=== PATIENT | female | born 1930 | race Caucasian/White ===

== ENCOUNTER 2018-06-16 11:05 | Emergency (ER) | payer MEDICARE ==
[2018-06-16 11:17] VITALS: BP 170/55
--- NOTE | 2018-06-16 11:49 | UC ---
Abdominal Pain Female HPI - HPI Summary HPI Summary: Patient presents to urgent care with her daughter. Patient states yesterday she started having urinary frequency couple episodes of incontinence and malodor. Patient states this is happened in the past with UTIs. Patient's last UTI was approximately 2 years ago. Daughter states when she gets them she gets very confused. At this time patient is not confused. No abdominal pain. No nausea vomiting. No back pain. No fever. Patient has not taken any medication to treat this. Patient typically gets her care and [place]. Patient has no allergies antibiotics. Patient's medication list reviewed. - History of Current Complaint Chief Complaint: UCGU Stated Complaint: URINARY COMPLAINT Time Seen by Provider: 06/16/18 11:11 Hx Obtained From: Patient ?: No Onset/Duration: Gradual Onset Severity Currently: None Pain Intensity: 0 Allergies/Adverse Reactions: Allergies Allergy/AdvReac Type Severity Reaction Status Date / Time No Known Allergies Allergy Verified 06/16/18 11:17 Home Medications: Home Medications C,E,Zinc,Copper 11/Jwzty2w/Lut [Ocuvite Adult 50 Plus Softgel] 1 each PO DAILY 06/16/18 [History Confirmed 06/16/18] Calcium Carbonate [Calcium/C/D] 1 chw PO DAILY 06/16/18 [History Confirmed 06/16] Docusate Sodium [Stool Softener] 100 mg PO DAILY 06/16/18 [History Confirmed ] Insulin Glargine,Hum.rec.anlog [Basaglar Kwikpen] 20 unit SC BEDTIME 06/16/18 [ History Confirmed 06/16/18] Lidocaine PATCH 5%* [Lidoderm 5% Patch*] 1 patch TRANSDERM DAILY 06/16/18 [ History Confirmed 06/16/18] Psyllium Husk [Fiber] 1 dose PO DAILY 06/16/18 [History Confirmed 06/16/18] PMH/Surg Hx/FS Hx/Imm Hx Endocrine History: Dyslipidemia Cardiovascular History: Hypertension - Surgical History Surgical History: Yes Surgery Procedure, Year, and Place: cardiac stents x3. hiatal hernia repair 04/12. GALLBLADDER - Family History Known Family History: Positive: Cardiac Disease, Hypertension, Diabetes - Social History Occupation: Retired Lives: Alone Alcohol Use: None Substance Use Type: None Smoking Status (MU): Former Smoker Length of Time of Smoking/Using Tobacco: in high school only Review of Systems All Other Systems Reviewed And Are Negative: Yes Constitutional: Positive: Negative Skin: Positive: Negative Respiratory: Positive: Negative Cardiovascular: Positive: Negative Gastrointestinal: Positive: Negative Genitourinary: Positive: Frequency, Urgency, Other - incontinence. Negative: Vaginal/Penile Burning, Vaginal/Penile Itching, Vaginal/Penile Discharge, Vaginal/Penile Pain, Vaginal/Penile Tenderness Is Patient Immunocompromised?: No Physical Exam - Summary Physical Exam Summary: Vital Signs Reviewed: Yes A+Ox3, no distress Eyes: Conjunctiva Clear, ENT: Hearing grossly normal mmoist, Neck: Positive: Supple Respiratory: Positive: No respiratory distress, No accessory muscle use + CTA throughout no w/r Cardiovascular: RRR nl s1, s2 no m/r CBT <2 sec abd soft + BS nt/nd no guarding, no distension Musculoskeletal Exam: Pt uses wheelchair for assistance - arthritis b/l hips Neurological: Positive: Alert, + sensation throughout Psychological: Positive: Normal Response To Family Skin: Positive: no rash, no ecchymosis Triage Information Reviewed: Yes Vital Signs: Initial Vital Signs Temp 97.7 F 06/16/18 11:12 Pulse 61 06/16/18 11:12 Resp 18 06/16/18 11:12 BP 170/55 06/16/18 11:12 Pulse Ox 100 06/16/18 11:12 Abd Pain Female Course/Dx - Course Course Of Treatment: Patient presents to urgent care with her daughter. Patient with less than 24 hours of urinary symptoms. Patient with a history of recurrent UTIs. Patient without any cultures in our system. Care usually in [place]. Urine today consistent with UTI including leukoesterase and blood. Called patient's pharmacy last antibiotic that they have on file was admitted in 2012. Will start cephalexin hydrate culture return precautions Pt's BP elevated - history of HTN - Differential Dx/Diagnosis Provider Diagnosis: UTI (urinary tract infection) Discharge - Sign-Out/Discharge Documenting (check all that apply): Patient Departure All imaging exams completed and their final reports reviewed: No Studies - Discharge Plan Condition: Stable Disposition: HOME Prescriptions: Cephalexin CAP* [Keflex 500 CAP*] 500 mg PO BID #14 cap Patient Education Materials: Urinary Tract Infection in Women (ED) Referrals: Abigail Patterson MD [Primary Care Provider] - Additional Instructions: - stay well hydrated - drink plenty of non-alcoholic, non caffinated beverages - your urine will be further tested - if you require any changes to your treatment, we will contact you - this usually take 2 days - Contact your primary doctor to arrange a follow-up appointment next week. Contact your doctor or return with questions or concerns - Take your antibiotics exactly as prescribed until gone - Okay to take Tylenol every 6 hours for pain. Take with food - Call your doctor or return with questions or concerns - Billing Disposition and Condition Condition: STABLE Disposition: Home
== END 2018-06-16 11:58 | disposition home or self-care (01) ==
LOC: UCEAST 11:05
DX: N39.0 Urinary tract infection, site not specified (principal); Z87.891 Personal history of nicotine dependence
CPT/HCPCS: 81003; 87077; 87086; 87186; 99212; G0463

== ENCOUNTER 2019-03-04 20:27 | Emergency (ER) | payer MEDICARE ==
--- NOTE | 2019-03-05 01:07 | ED ---
Complex/Multi-Sys Presentation - HPI Summary HPI Summary: 80-year-old female presents with pain after a fall a week ago. She rolled out of bed. She landed on right thigh. No loss consciousness. She was complaining of no pain at that time. Now she is complaining of right rib pain, hip pain, and back pain. family states that she has been more confused than normal. States this happens that she has uti. No fevers that they know. No chest pain or shortness of breath currently. No cough. She states that she has a baseline currently. She denies any shortness of breath. She is not on a blood thinners. She denies any headache. She has been able to ambulate. - History Of Current Complaint Chief Complaint: EDGeneral Time Seen by Provider: 03/05/19 00:23 - Allergies/Home Medications Allergies/Adverse Reactions: Allergies Allergy/AdvReac Type Severity Reaction Status Date / Time No Known Allergies Allergy Verified 03/04/19 20:32 PMH/Surg Hx/FS Hx/Imm Hx Endocrine/Hematology History: Reports: Hx Diabetes, Hx Thyroid Disease - Hypothyroidism Cardiovascular History: Reports: Hx Coronary Artery Disease, Hx Hypercholesterolemia, Hx Hypertension Respiratory History: Reports: Other Respiratory Problems/Disorders - home O2 2 liters GI History: Reports: Hx Hiatal Hernia Sensory History: Reports: Hx Contacts or Glasses, Hx Hearing Aid - Hearing aides at home Opthamlomology History: Reports: Hx Contacts or Glasses Neurological History: Reports: Hx CVA Psychiatric History: Reports: Hx Depression - Surgical History Surgery Procedure, Year, and Place: cardiac stents x3. hiatal hernia repair 04/12. GALLBLADDER Infectious Disease History: No Infectious Disease History: Denies: Traveled Outside the [place] in Last 30 Days - Family History Known Family History: Positive: Cardiac Disease, Hypertension, Diabetes - Social History Alcohol Use: None Hx Substance Use: No Substance Use Type: Reports: None Hx Tobacco Use: No Smoking Status (MU): Former Smoker Length of Time of Smoking/Using Tobacco: in high school only Review of Systems Negative: Fever Positive: Other - right rib pain. Negative: Chest Pain Negative: Shortness Of Breath Positive: Myalgia - back and right hip pain All Other Systems Reviewed And Are Negative: Yes Physical Exam Triage Information Reviewed: Yes Vital Signs On Initial Exam: Initial Vitals Temp Pulse Resp BP Pulse Ox 99.3 F 63 16 174/78 96 03/04/19 20:30 03/04/19 20:30 03/04/19 20:30 03/04/19 20:30 03/04/19 20:30 Vital Signs Reviewed: Yes Appearance: Positive: Well-Appearing Skin: Positive: Warm, Dry Head/Face: Positive: Normal Head/Face Inspection Eyes: Positive: Normal, Conjunctiva Clear ENT: Positive: Pharynx normal Respiratory/Lung Sounds: Positive: Clear to Auscultation, Breath Sounds Present , Other - tenderness over right ribs, no step off Cardiovascular: Positive: Normal, RRR Abdomen Description: Positive: Nontender, Soft Bowel Sounds: Positive: Present Musculoskeletal: Positive: Strength/ROM Intact - right hip, Other - tenderness right hip, tenderness lower back, good pulse, sensation grossly intact Neurological: Positive: Sensory/Motor Intact, CN Intact II-III Psychiatric: Positive: Normal Procedures - Sedation Patient Received Moderate/Deep Sedation with Procedure: No Diagnostics - Vital Signs Vital Signs Temp Pulse Resp BP Pulse Ox 03/05/19 00:07 98 F 57 18 157/54 98 03/04/19 20:30 99.3 F 63 16 174/78 96 - Laboratory Result Diagrams: 03/05/19 00:49 03/05/19 00:49 Lab Statement: Any lab studies that have been ordered have been reviewed, and results considered in the medical decision making process. - Radiology rib Radiology Interpretation Completed By: ED Physician Summary of Radiographic Findings: rib fracture present hip Radiology Interpretation Completed By: ED Physician Summary of Radiographic Findings: no fracture - CT back CT Interpretation Completed By: Radiologist Summary of CT Findings: IMPRESSION: Moderate multilevel lumbar spondylopathy. No canal stenosis or nerve root compression. - EKG No standard instances Cardiac Rate: NL EKG Rhythm: Sinus Rhythm Summary of EKG Findings: sinus rhythm Complex Multi-Symp Course/Dx Course Of Treatment: 80-year-old female presents with pain after a fall a week ago. She rolled out of bed. She landed on right thigh. No loss consciousness. She was complaining of no pain at that time. Now she is complaining of right rib pain, hip pain, and back pain. family states that she has been more confused than normal. States this happens that she has uti. No fevers that they know. No chest pain or shortness of breath currently. No cough. She states that she has a baseline currently. She denies any shortness of breath. She is not on a blood thinners. She denies any headache. She has been able to ambulate. On exam tenderness over right ribs. Tenderness of right hip with full range of motion. tenderness lower back. rib xray appears to have rib fracture with preliminary read. hip xray no fx. CT lumbar shows no fx. wbc normal. urine shows no infection. told to place ice on the rib. told take tyenlol for pain. told follow up with primary. patient understand and agrees with plan. - Diagnoses Differential Diagnoses/HQI/PQRI: Metabolic Abnormality, Sepsis, Urinary Tract Infection Provider Diagnoses: Fall, Rib fracture, Hip pain Discharge ED - Sign-Out/Discharge Documenting (check all that apply): Patient Departure - Discharge Plan Condition: Good Disposition: HOME Patient Education Materials: Rib Fracture (ED), Fall Prevention for Older Adults (ED) Referrals: Abigail Patterson MD [Primary Care Provider] - Additional Instructions: Take deep breath throughout the day apply ice Take Tylenol 325mg for pain every 6 hours, if severe pain can use up to 500mg for pain every 6 hours Follow up with primary care physician within 5 days Return to ED if develop new productive cough, fever, or any new or worsening symptoms - Billing Disposition and Condition Condition: GOOD Disposition: Home
[2019-03-05 01:14] LABS: Albumin 3.7 g/dL (3.2-5.2); Albumin/Globulin Ratio 1.5 (1-3); BUN/Creatinine Ratio 19.3 (8-20); C Reactive Protein 1.41 mg/L (<8.01); Calcium 9.8 mg/dL (8.6-10.3); EGFR African American 57.3 (>60); EGFR Non-African American 47.4 (>60); Globulin 2.4 g/dL (2-4); Potassium 4.3 mmol/L (3.5-5.0); Total Bilirubin 0.5 mg/dL (0.2-1.0); Total Protein 6.1 g/dL (6.4-8.9)
[2019-03-05 01:42] LABS: ABS Eosinophils 0.1 10^3/ul (0-0.6); ABS Lymphocytes 2.6 10^3/ul (1.0-4.8); ABS Monocytes 0.5 10^3/ul (0-0.8); ABS Neutrophils 2.4 10^3/ul (1.5-7.7); Eosinophil % 1.1 %; Hematocrit 32 % (35-47); Hemoglobin 10.8 g/dL (12.0-16.0); Lymphocyte % 45.6 %; Mean Corpuscular HGB Conc 34 g/dL (31-36); Mean Corpuscular Hemoglobin 32 pg (27-31); Mean Corpuscular Volume 95 fL (80-97); Mean Platelet Volume 8.1 fL (7.4-10.4); Platelet Count 203 10^3/uL (150-450); Red Cell Distribution Width 16 % (10-15); White Blood Count 5.6 10^3/uL (3.5-10.8)
[2019-03-05 02:14] LABS: Urine Appearance Clear; Urine Bilirubin Negative (Negative); Urine Blood Negative (Negative); Urine Color Yellow; Urine Glucose Negative (Negative); Urine Ketones Negative (Negative); Urine Nitrite Negative (Negative); Urine Protein Negative (Negative); Urine Urobilinogen Negative (Negative)
[2019-03-05 02:46] VITALS: BP 178/78
== END 2019-03-05 02:23 | disposition home or self-care (01) ==
LOC: ED 20:27
DX: S22.41XA Multiple fractures of ribs, right side, initial encounter for closed fracture (principal); W06.XXXA Fall from bed, initial encounter; Y92.003 Bedroom of unspecified non-institutional (private) residence as the place of occurrence of the external cause; M25.551 Pain in right hip; M85.88 Other specified disorders of bone density and structure, other site; M16.11 Unilateral primary osteoarthritis, right hip; M46.96 Unspecified inflammatory spondylopathy, lumbar region; E11.9 Type 2 diabetes mellitus without complications; I10 Essential (primary) hypertension; Z99.81 Dependence on supplemental oxygen; Z95.5 Presence of coronary angioplasty implant and graft; Z87.891 Personal history of nicotine dependence
CPT/HCPCS: 36415; 72131; 80053; 81003; 83605; 85025; 86140; 93005; 99283

== ENCOUNTER 2019-08-03 20:57 | Inpatient (IN) ==
[2019-08-03] MEDS ORDERED: Morphine 4 MG/ML VIAL (1 ml) IV ONE ×2 (21:15→22:43)
[2019-08-03 21:45] LABS: ABS Eosinophils 0.1 10^3/ul (0-0.6); ABS Lymphocytes 1.6 10^3/ul (1.0-4.8); ABS Monocytes 0.6 10^3/ul (0-0.8); Eosinophil % 0.6 %; Hematocrit 34 % (35-47); Hemoglobin 11.3 g/dL (12.0-16.0); Mean Corpuscular HGB Conc 34 g/dL (31-36); Mean Corpuscular Hemoglobin 32 pg (27-31); Mean Corpuscular Volume 96 fL (80-97); Mean Platelet Volume 7.9 fL (7.4-10.4); Platelet Count 242 10^3/uL (150-450); Red Blood Count 3.49 10^6 /uL (3.70-4.87); Red Cell Distribution Width 16 % (10-15); White Blood Count 10.7 10^3/uL (3.5-10.8)
[2019-08-03 22:01] LABS: INR 1.16 (0.82-1.09)
[2019-08-03 22:02] LABS: Albumin 3.8 g/dL (3.2-5.2); Albumin/Globulin Ratio 1.6 (1-3); BUN/Creatinine Ratio 23.1 (8-20); Calcium 9.8 mg/dL (8.6-10.3); EGFR African American 57.9 (>60); EGFR Non-African American 47.9 (>60); Globulin 2.4 g/dL (2-4); Magnesium 1.5 mg/dL (1.9-2.7); Potassium 4.2 mmol/L (3.5-5.0); Total Bilirubin 0.6 mg/dL (0.2-1.0); Total Protein 6.2 g/dL (6.4-8.9)
[2019-08-03 22:04] LABS: Troponin I 0.01 ng/mL (<0.03)
[2019-08-03 22:26] LABS: TSH (Thyroid Stimulating Horm) 3.32 mcIU/mL (0.34-5.60)
[2019-08-03] MEDS ORDERED: Heparin 5000 UNITS/ML 1 mL VIAL SUBCUT SCH (22:58)
[2019-08-03] MEDS ORDERED: Dextrose 50% Syringe 50 ml 25 GM/50 ML SYRINGE IV PUSH PRN (23:39)
[2019-08-03] MEDS ORDERED: Magnesium Hydroxide LIQ 30 ML UDC PO PRN (23:43)
[2019-08-03] MEDS ORDERED: MAGNESIUM SULFATE IVPB ONE (23:45)
[2019-08-04] MEDS ORDERED: cefTRIAXone ADVAN VIAL 1 GM in NS 0.9% 50 ML 50 ML IVPB ONE (00:30)
[2019-08-04] MEDS ORDERED: cefTRIAXone ADVAN VIAL 1 GM in NS 0.9% 50 ML 50 ML IVPB SCH (01:00)
[2019-08-04] MEDS: NS 0.9% 1000 ml BAG 1,000 ML IV SCH ×2 (01:51→17:48)
[2019-08-04] MEDS ORDERED: Prochlorperazine 5 mg/ml 2 ml VIAL (10 mg) IV PRN (02:12)
[2019-08-04] MEDS: Morphine 2 MG/ML SYRINGE IV PRN ×3 (03:30→11:41)
[2019-08-04 05:41] LABS: ABS Lymphocytes 0.9 10^3/ul (1.0-4.8); ABS Monocytes 0.6 10^3/ul (0-0.8); Eosinophil % 0.1 %; Hematocrit 30 % (35-47); Hemoglobin 10.2 g/dL (12.0-16.0); Lymphocyte % 8.9 %; Mean Corpuscular HGB Conc 34 g/dL (31-36); Mean Corpuscular Hemoglobin 32 pg (27-31); Mean Corpuscular Volume 96 fL (80-97); Mean Platelet Volume 7.6 fL (7.4-10.4); Platelet Count 209 10^3/uL (150-450); Red Blood Count 3.14 10^6 /uL (3.70-4.87); Red Cell Distribution Width 15 % (10-15); White Blood Count 9.9 10^3/uL (3.5-10.8)
[2019-08-04 05:59] LABS: BUN/Creatinine Ratio 25.3 (8-20); Calcium 9.2 mg/dL (8.6-10.3); EGFR African American 70.6 (>60); EGFR Non-African American 58.3 (>60); Magnesium 1.9 mg/dL (1.9-2.7); Potassium 4.1 mmol/L (3.5-5.0)
[2019-08-04] MEDS: Lidocaine PATCH 5% PATCH TRANSDERM SCH (08:31)
[2019-08-04] MEDS: Insulin GLARGINE 100 un/ml 10 ml VIAL SUBCUT SCH (08:39)
[2019-08-04] MEDS: Polyethylene Glycol 3350 17 GM PACKET PO SCH ×2 (08:44→21:25)
[2019-08-04] MEDS: FESOTERODINE 4 MG PO SCH (08:44)
[2019-08-04] MEDS ORDERED: Bupivacaine 0.25% SDV 30 ML ONE (12:49)
[2019-08-04] MEDS ORDERED: Bupivacaine 0.25% w/EPI 10 ML SDV ONE (12:50)
[2019-08-04] MEDS ORDERED: Ketamine HCL 50 mg/ml 10 ml VIAL (500 MG) ONE (13:08)
[2019-08-04] MEDS ORDERED: ceFAZolin 2 GM PREMIX 2 GM/50 ML BAG ONE (13:09)
[2019-08-04] MEDS ORDERED: Succinylcholine 200 mg VIAL 20 mg/ml 10 ml VIAL (200 mg) ONE (13:10)
[2019-08-04] MEDS ORDERED: Midazolam 2 mg/2 ml VIAL 1 mg/ml 2 ml VIAL (2 mg) ONE (13:20)
[2019-08-04] MEDS ORDERED: fentaNYL 100 mcg/2 ml 50 MCG/ML VIAL ONE (13:58)
[2019-08-04] MEDS ORDERED: Propofol 10 MG/ML 20 ML BTL ONE (14:45)
[2019-08-04] MEDS ORDERED: DiMENhydriNATE IV 50 mg/ml 1 ml VIAL ONE (14:45)
[2019-08-04] MEDS ORDERED: Acetaminophen IV 1 GM/100ML 100 ML ONE (14:45)
[2019-08-04] MEDS ORDERED: Glycopyrrolate IV 0.2 MG/ML 1 ML VIAL ONE (14:45)
[2019-08-04] MEDS ORDERED: Dexamethasone IV 4 MG/ML VIAL 1 ml VIAL ONE (14:45)
[2019-08-04] MEDS ORDERED: EPHEDrine (Pressors) 50 MG/ML VIAL ONE (14:45)
[2019-08-04] MEDS ORDERED: Levalbuterol 0.63MG/3ML NEB UNIT OF USE INH PRN (16:06)
[2019-08-04] MEDS ORDERED: DiMENhydriNATE IV 50 mg/ml 1 ml VIAL IV PUSH PRN (16:06)
[2019-08-04] MEDS ORDERED: HYDROmorphone 1 MG/1 ML SYRINGE IV PRN (16:06)
[2019-08-04] MEDS ORDERED: Naloxone 0.4 mg VIAL 0.4 mg/ml 1 ml VIAL IV PRN (16:06)
[2019-08-04] MEDS: CMCS: Simvastatin 20 mg TAB (NF) PO SCH (17:46)
[2019-08-04] MEDS: Lidocaine Patch REMOVE PATCH PATCH OFF SCH (20:42)
[2019-08-04] MEDS: ceFAZolin 1 GM* X 3 DOSES POST-OP Q8H (AddVan) IVPB SCH (21:39)
[2019-08-04 23:48] LABS: Urine Appearance Cloudy; Urine Bilirubin Negative (Negative); Urine Blood 2+ (Negative); Urine Color Yellow; Urine Glucose Negative (Negative); Urine Ketones Trace (Negative); Urine Nitrite Negative (Negative); Urine Protein 1+(30 mg/dL) (Negative); Urine Specific Gravity 1.032 (1.010-1.030); Urine Urobilinogen Negative (Negative)
[2019-08-04 23:56] LABS: Urine Bacteria Absent (Absent); Urine Red Blood Cell 3+(>10/hpf) (Absent); Urine Squamous Epithelial Cell Present (Absent); Urine White Blood Cell 1+(6-10/hpf) (Absent)
[2019-08-05] MEDS: NS 0.9% 1000 ml BAG 1,000 ML IV SCH (04:01)
[2019-08-05 06:08] LABS: ABS Monocytes 0.8 10^3/ul (0-0.8); Eosinophil % 0.3 %; Hematocrit 23 % (35-47); Hemoglobin 7.9 g/dL (12.0-16.0); Lymphocyte % 10.7 %; Mean Corpuscular HGB Conc 34 g/dL (31-36); Mean Corpuscular Hemoglobin 33 pg (27-31); Mean Corpuscular Volume 95 fL (80-97); Mean Platelet Volume 8.1 fL (7.4-10.4); Platelet Count 178 10^3/uL (150-450); Red Cell Distribution Width 15 % (10-15); White Blood Count 9.3 10^3/uL (3.5-10.8)
[2019-08-05 06:26] LABS: BUN/Creatinine Ratio 23.5 (8-20); Calcium 8.1 mg/dL (8.6-10.3); EGFR African American 64.8 (>60); EGFR Non-African American 53.6 (>60); Magnesium 1.5 mg/dL (1.9-2.7); Potassium 4.1 mmol/L (3.5-5.0)
[2019-08-05] MEDS: ceFAZolin 1 GM* X 3 DOSES POST-OP Q8H (AddVan) IVPB SCH ×2 (06:30→14:45)
[2019-08-05] MEDS: Polyethylene Glycol 3350 17 GM PACKET PO SCH ×2 (07:51→21:46)
[2019-08-05] MEDS: Insulin GLARGINE 100 un/ml 10 ml VIAL SUBCUT SCH (09:33)
[2019-08-05] MEDS: Enoxaparin 30 MG/0.3 ML SYR(*) SUBCUT SCH (09:35)
[2019-08-05] MEDS: Lidocaine PATCH 5% PATCH TRANSDERM SCH (09:37)
[2019-08-05] MEDS: FESOTERODINE 4 MG PO SCH (09:47)
[2019-08-05] MEDS: CMCS: Simvastatin 20 mg TAB (NF) PO SCH (17:49)
[2019-08-05] MEDS: Lidocaine Patch REMOVE PATCH PATCH OFF SCH (21:00)
[2019-08-06] MEDS: Lidocaine Patch REMOVE PATCH PATCH OFF SCH ×2 (00:21→21:22)
[2019-08-06] MEDS: NS 0.9% 1000 ml BAG 1,000 ML IV SCH ×2 (00:42→12:52)
[2019-08-06 05:42] LABS: ABS Basophils 0.1 10^3/ul (0-0.2); ABS Eosinophils 0.1 10^3/ul (0-0.6); ABS Lymphocytes 1.3 10^3/ul (1.0-4.8); ABS Monocytes 0.8 10^3/ul (0-0.8); Eosinophil % 1.9 %; Hematocrit 22 % (35-47); Hemoglobin 7.6 g/dL (12.0-16.0); Lymphocyte % 17.1 %; Mean Corpuscular HGB Conc 35 g/dL (31-36); Mean Corpuscular Hemoglobin 33 pg (27-31); Mean Corpuscular Volume 95 fL (80-97); Mean Platelet Volume 7.9 fL (7.4-10.4); Platelet Count 176 10^3/uL (150-450); Red Blood Count 2.28 10^6 /uL (3.70-4.87); Red Cell Distribution Width 16 % (10-15); White Blood Count 7.9 10^3/uL (3.5-10.8)
[2019-08-06 05:58] LABS: EGFR African American 66.4 (>60); EGFR Non-African American 54.8 (>60); Magnesium 1.6 mg/dL (1.9-2.7); Potassium 4.1 mmol/L (3.5-5.0)
[2019-08-06] MEDS: Polyethylene Glycol 3350 17 GM PACKET PO SCH ×2 (09:17→21:05)
[2019-08-06] MEDS: Insulin GLARGINE 100 un/ml 10 ml VIAL SUBCUT SCH (09:24)
[2019-08-06] MEDS: Enoxaparin 30 MG/0.3 ML SYR(*) SUBCUT SCH (09:24)
[2019-08-06] MEDS: FESOTERODINE 4 MG PO SCH (09:29)
[2019-08-06] MEDS ORDERED: Magnesium Sulfate IV 3 GM in NS 0.9% 100 ml BAG 100 ML IVPB ONE (09:30)
[2019-08-06] MEDS: Lidocaine PATCH 5% PATCH TRANSDERM SCH (09:32)
[2019-08-06] MEDS ORDERED: Furosemide 20 mg/2 ml IV VIAL IV SLOW PU ONE (16:00)
[2019-08-06] MEDS: CMCS: Simvastatin 20 mg TAB (NF) PO SCH (18:11)
[2019-08-07] MEDS: NS 0.9% 1000 ml BAG 1,000 ML IV SCH ×3 (01:46→23:32)
[2019-08-07 05:59] LABS: Hematocrit 26 % (35-47); Hemoglobin 8.8 g/dL (12.0-16.0); Mean Corpuscular HGB Conc 34 g/dL (31-36); Mean Corpuscular Hemoglobin 32 pg (27-31); Mean Corpuscular Volume 95 fL (80-97); Mean Platelet Volume 7.6 fL (7.4-10.4); Platelet Count 202 10^3/uL (150-450); Red Blood Count 2.76 10^6 /uL (3.70-4.87); Red Cell Distribution Width 16 % (10-15); White Blood Count 9.1 10^3/uL (3.5-10.8)
[2019-08-07 06:11] LABS: Anion Gap 11 mmol/L (2-11); CO2 Carbon Dioxide 24 mmol/L (22-32); Calcium 7.9 mg/dL (8.6-10.3); Chloride 103 mmol/L (101-111); Magnesium 1.6 mg/dL (1.9-2.7); Potassium 3.8 mmol/L (3.5-5.0); Sodium 138 mmol/L (135-145)
[2019-08-07 06:17] LABS: BUN/Creatinine Ratio 24.7 (8-20); Blood Urea Nitrogen 19 mg/dL (6-24); EGFR African American 85.6 (>60); EGFR Non-African American 70.7 (>60); Glucose 186 mg/dL (70-100)
[2019-08-07] MEDS: Polyethylene Glycol 3350 17 GM PACKET PO SCH ×2 (08:40→21:43)
[2019-08-07] MEDS: Lidocaine PATCH 5% PATCH TRANSDERM SCH (08:49)
[2019-08-07] MEDS: Enoxaparin 30 MG/0.3 ML SYR(*) SUBCUT SCH (08:50)
[2019-08-07] MEDS: Insulin GLARGINE 100 un/ml 10 ml VIAL SUBCUT SCH (08:53)
[2019-08-07] MEDS: FESOTERODINE 4 MG PO SCH (08:57)
[2019-08-07] MEDS ORDERED: Magnesium Sulfate IV 3 GM in NS 0.9% 100 ml BAG 100 ML IVPB ONE (09:05)
[2019-08-07] MEDS: CMCS: Simvastatin 20 mg TAB (NF) PO SCH (16:53)
[2019-08-07] MEDS: Lidocaine Patch REMOVE PATCH PATCH OFF SCH ×2 (16:54→23:27)
[2019-08-07 17:23] LABS: Troponin I 0.06 ng/mL (<0.03)
[2019-08-07 19:13] LABS: Troponin I 0.09 ng/mL (<0.03)
[2019-08-07 21:26] LABS: Troponin I 0.09 ng/mL (<0.03)
[2019-08-07] MEDS ORDERED: LORazepam 2 mg VIAL 1 ml IM ONE (21:39)
[2019-08-07] MEDS ORDERED: Lorazepam PYXIS KEY PRN (21:39)
[2019-08-07] MEDS ORDERED: Acetaminophen IV 1 GM/100ML 1,000 MG/100 ML VIAL IVPB ONE (22:10)
[2019-08-08 00:49] LABS: Troponin I 0.07 ng/mL (<0.03)
[2019-08-08 03:50] LABS: ABS Basophils 0.1 10^3/ul (0-0.2); ABS Eosinophils 0.1 10^3/ul (0-0.6); ABS Lymphocytes 1.7 10^3/ul (1.0-4.8); Eosinophil % 0.6 %; Hematocrit 24 % (35-47); Hemoglobin 8.2 g/dL (12.0-16.0); Lymphocyte % 17.7 %; Mean Corpuscular HGB Conc 34 g/dL (31-36); Mean Corpuscular Hemoglobin 32 pg (27-31); Mean Corpuscular Volume 95 fL (80-97); Mean Platelet Volume 7.7 fL (7.4-10.4); Platelet Count 195 10^3/uL (150-450); Red Blood Count 2.56 10^6 /uL (3.70-4.87); Red Cell Distribution Width 16 % (10-15); White Blood Count 9.5 10^3/uL (3.5-10.8)
[2019-08-08 04:01] LABS: Anion Gap 5 mmol/L (2-11); BUN/Creatinine Ratio 26.9 (8-20); Blood Urea Nitrogen 18 mg/dL (6-24); CO2 Carbon Dioxide 25 mmol/L (22-32); Calcium 7.8 mg/dL (8.6-10.3); Chloride 109 mmol/L (101-111); EGFR African American 100.5 (>60); EGFR Non-African American 83.1 (>60); Glucose 125 mg/dL (70-100); Magnesium 1.9 mg/dL (1.9-2.7); Potassium 3.4 mmol/L (3.5-5.0); Sodium 139 mmol/L (135-145)
[2019-08-08 04:06] LABS: Troponin I 0.06 ng/mL (<0.03)
[2019-08-08] MEDS: KCL 10 MEQ/50 ML IVPREMIX 10 MEQ/50 ML BAG IV SCH ×2 (06:18→08:27)
[2019-08-08] MEDS: Polyethylene Glycol 3350 17 GM PACKET PO SCH ×2 (09:35→20:15)
[2019-08-08] MEDS: Enoxaparin 30 MG/0.3 ML SYR(*) SUBCUT SCH (09:36)
[2019-08-08] MEDS: Insulin GLARGINE 100 un/ml 10 ml VIAL SUBCUT SCH (09:36)
[2019-08-08] MEDS: Potassium Chlor 20 meq TAB.ER PO SCH ×2 (09:40→12:25)
[2019-08-08] MEDS: Lidocaine PATCH 5% PATCH TRANSDERM SCH (09:58)
[2019-08-08] MEDS ORDERED: Iodixanol (CONTRAST) 320 MG/ML 100 ML SDV IV ONE (10:00)
[2019-08-08] MEDS: NS 0.9% 1000 ml BAG 1,000 ML IV SCH ×2 (10:05→21:15)
[2019-08-08] MEDS: FESOTERODINE 4 MG PO SCH (12:52)
[2019-08-08] MEDS: CMCS: Simvastatin 20 mg TAB (NF) PO SCH (17:33)
[2019-08-08] MEDS: Lidocaine Patch REMOVE PATCH PATCH OFF SCH (20:14)
[2019-08-09 06:35] LABS: Hematocrit 23 % (35-47); Hemoglobin 7.9 g/dL (12.0-16.0)
[2019-08-09 06:57] LABS: BUN/Creatinine Ratio 23.2 (8-20); Calcium 7.9 mg/dL (8.6-10.3); EGFR African American 97.2 (>60); EGFR Non-African American 80.3 (>60); Magnesium 1.5 mg/dL (1.9-2.7); Potassium 3.8 mmol/L (3.5-5.0)
[2019-08-09] MEDS: NS 0.9% 1000 ml BAG 1,000 ML IV SCH (08:48)
[2019-08-09] MEDS: Insulin GLARGINE 100 un/ml 10 ml VIAL SUBCUT SCH (08:51)
[2019-08-09] MEDS: Lidocaine PATCH 5% PATCH TRANSDERM SCH (08:55)
[2019-08-09] MEDS: Enoxaparin 30 MG/0.3 ML SYR(*) SUBCUT SCH (08:56)
[2019-08-09] MEDS: Polyethylene Glycol 3350 17 GM PACKET PO SCH (08:56)
[2019-08-09] MEDS ORDERED: Magnesium Sulfate IV 3 GM in NS 0.9% 100 ml BAG 100 ML IVPB ONE (13:05)
[2019-08-09 15:32] VITALS: BP 136/69
== END 2019-08-09 16:20 | disposition swing bed (61) | DRG 481 ==
LOC: ED 20:57 → SSU 08-04 00:26 → MEDTELE 08-07 19:20
PROVIDERS: ADMIT Internal Medicine; ATTEND Internal Medicine

== ENCOUNTER 2019-08-09 15:32 | Inpatient (IN) ==
[2019-08-09] MEDS ORDERED: Magnesium Hydroxide LIQ 30 ML UDC PO PRN (16:27)
[2019-08-09] MEDS ORDERED: Dextrose 50% Syringe 50 ml 25 GM/50 ML SYRINGE IV PUSH PRN (16:27)
[2019-08-09] MEDS: Insulin LISPRO 100 units/ml(*) SUBCUT SCH ×2 (17:13→22:19)
[2019-08-09] MEDS ORDERED: NON FORMULARY MED (Lidocaine Patch Remove 1 PATCH) PATCH OFF SCH (21:00)
[2019-08-09] MEDS: Lidocaine Patch REMOVE PATCH PATCH OFF SCH (23:14)
[2019-08-10] MEDS ORDERED: Lidocaine 4% GEL 10 GM TUBE TOPICAL ONE (02:13)
[2019-08-10] MEDS: Insulin LISPRO 100 units/ml(*) SUBCUT SCH ×4 (07:59→21:46)
[2019-08-10] MEDS: Multivitamins/Minerals TAB PO SCH (09:31)
[2019-08-10] MEDS: Lidocaine PATCH 5% PATCH TRANSDERM SCH ×2 (09:34→11:26)
[2019-08-10] MEDS: Enoxaparin 30 MG/0.3 ML SYR(*) SUBCUT SCH (09:34)
[2019-08-10] MEDS: FESOTERODINE 4 MG PO SCH (09:34)
[2019-08-10] MEDS: CYANOCOBALAMIN 50 MCG PO SCH (09:34)
[2019-08-10] MEDS: Insulin GLARGINE 100 un/ml (*) 10 ml VIAL SUBCUT SCH (09:46)
[2019-08-10] MEDS: Lidocaine Patch REMOVE PATCH PATCH OFF SCH ×2 (22:15→22:16)
[2019-08-11] MEDS: Multivitamins/Minerals TAB PO SCH (08:29)
[2019-08-11] MEDS: Enoxaparin 30 MG/0.3 ML SYR(*) SUBCUT SCH (08:36)
[2019-08-11] MEDS: Lidocaine PATCH 5% PATCH TRANSDERM SCH (08:36)
[2019-08-11] MEDS: Insulin LISPRO 100 units/ml(*) SUBCUT SCH ×4 (08:50→21:07)
[2019-08-11] MEDS: CYANOCOBALAMIN 50 MCG PO SCH (08:50)
[2019-08-11] MEDS: Insulin GLARGINE 100 un/ml (*) 10 ml VIAL SUBCUT SCH (08:50)
[2019-08-11] MEDS: FESOTERODINE 4 MG PO SCH (08:50)
[2019-08-11] MEDS: Lidocaine Patch REMOVE PATCH PATCH OFF SCH (21:07)
[2019-08-12 06:35] LABS: ABS Eosinophils 0.1 10^3/ul (0-0.6); ABS Lymphocytes 1.6 10^3/ul (1.0-4.8); ABS Monocytes 0.5 10^3/ul (0-0.8); Eosinophil % 1.1 %; Hematocrit 24 % (35-47); Hemoglobin 8.3 g/dL (12.0-16.0); Lymphocyte % 23.7 %; Mean Corpuscular HGB Conc 35 g/dL (31-36); Mean Corpuscular Hemoglobin 34 pg (27-31); Mean Corpuscular Volume 97 fL (80-97); Mean Platelet Volume 7.6 fL (7.4-10.4); Nucleated Red Blood Cells % 0.1; Platelet Count 304 10^3/uL (150-450); Red Blood Count 2.43 10^6 /uL (3.70-4.87); Red Cell Distribution Width 16 % (10-15); White Blood Count 6.8 10^3/uL (3.5-10.8)
[2019-08-12 06:57] LABS: BUN/Creatinine Ratio 19.7 (8-20); Calcium 8.4 mg/dL (8.6-10.3); EGFR African American 86.9 (>60); EGFR Non-African American 71.8 (>60); Magnesium 1.4 mg/dL (1.9-2.7); Potassium 3.6 mmol/L (3.5-5.0)
[2019-08-12] MEDS ORDERED: Magnesium Sulfate 2 gm BAG 2 GM/50 ML BAG IVPB ONE (07:24)
[2019-08-12] MEDS: Multivitamins/Minerals TAB PO SCH (08:14)
[2019-08-12] MEDS: Enoxaparin 30 MG/0.3 ML SYR(*) SUBCUT SCH (08:19)
[2019-08-12] MEDS: Lidocaine PATCH 5% PATCH TRANSDERM SCH (08:19)
[2019-08-12] MEDS: FESOTERODINE 4 MG PO SCH (08:30)
[2019-08-12] MEDS: CYANOCOBALAMIN 50 MCG PO SCH (08:30)
[2019-08-12] MEDS: Insulin GLARGINE 100 un/ml (*) 10 ml VIAL SUBCUT SCH (08:36)
[2019-08-12] MEDS: Insulin LISPRO 100 units/ml(*) SUBCUT SCH ×4 (08:36→22:17)
[2019-08-12] MEDS: Lidocaine Patch REMOVE PATCH PATCH OFF SCH (20:35)
[2019-08-13] MEDS: Lidocaine PATCH 5% PATCH TRANSDERM SCH (08:24)
[2019-08-13] MEDS: Insulin LISPRO 100 units/ml(*) SUBCUT SCH (08:25)
[2019-08-13] MEDS: Insulin GLARGINE 100 un/ml (*) 10 ml VIAL SUBCUT SCH (08:25)
[2019-08-13] MEDS: Enoxaparin 30 MG/0.3 ML SYR(*) SUBCUT SCH (08:25)
[2019-08-13] MEDS: Multivitamins/Minerals TAB PO SCH (08:29)
[2019-08-13] MEDS: FESOTERODINE 4 MG PO SCH (08:32)
[2019-08-13] MEDS: CYANOCOBALAMIN 50 MCG PO SCH (08:32)
[2019-08-13 11:21] VITALS: BP 147/41
== END 2019-08-13 12:00 | DRG 561 ==
LOC: MEDTELE 16:27
PROVIDERS: ADMIT Internal Medicine; ATTEND Internal Medicine

== ENCOUNTER 2019-08-22 15:44 | Inpatient (IN) ==
[2019-08-22] MEDS: Morphine 2 MG/ML SYRINGE IV PRN ×2 (17:25→22:11)
[2019-08-22 17:36] LABS: ABS Lymphocytes 0.9 10^3/ul (1.0-4.8); ABS Monocytes 0.6 10^3/ul (0-0.8); Eosinophil % 0.5 %; Hematocrit 27 % (35-47); Hemoglobin 9.4 g/dL (12.0-16.0); Lymphocyte % 14.3 %; Mean Corpuscular HGB Conc 34 g/dL (31-36); Mean Corpuscular Hemoglobin 33 pg (27-31); Mean Corpuscular Volume 98 fL (80-97); Mean Platelet Volume 7.6 fL (7.4-10.4); Platelet Count 359 10^3/uL (150-450); Red Cell Distribution Width 18 % (10-15); White Blood Count 6.7 10^3/uL (3.5-10.8)
[2019-08-22 17:50] LABS: Albumin 3.2 g/dL (3.2-5.2); Albumin/Globulin Ratio 1.5 (1-3); C Reactive Protein 41.06 mg/L (<8.01); Calcium 8.1 mg/dL (8.6-10.3); EGFR African American 95.6 (>60); Globulin 2.1 g/dL (2-4); Potassium 3.9 mmol/L (3.5-5.0); Total Bilirubin 0.6 mg/dL (0.2-1.0); Total Protein 5.3 g/dL (6.4-8.9)
[2019-08-22] MEDS ORDERED: Vancomycin per Pharmacy 1 EA NOTE FOLLOW UP SCH (18:00)
[2019-08-22] MEDS ORDERED: Cefepime 2 GM in Dextrose(*) 2 GM/50 ML BAG IV SCH (18:00)
[2019-08-22] MEDS ORDERED: Vancomycin(*) 1,500 MG in NS 0.9% 250 ml 250 ML IVPB ONE (18:00)
[2019-08-22] MEDS ORDERED: Dextrose 50% Syringe 50 ml 25 GM/50 ML SYRINGE IV PUSH PRN (18:15)
[2019-08-22 18:36] LABS: Erythrocyte Sed Rate 32 mm/Hr (0-29)
[2019-08-22] MEDS ORDERED: Senna/Docusate 8.6/50 mg (NF) TAB PO SCH (21:00)
[2019-08-22] MEDS: Insulin LISPRO 100 units/ml(*) SUBCUT SCH (22:19)
[2019-08-22] MEDS: Senna TAB 8.6 mg TAB PO SCH (22:41)
[2019-08-23] MEDS: Cefepime 2 GM in Dextrose(*) 2 GM/50 ML BAG IV SCH ×2 (00:01→10:06)
[2019-08-23] MEDS: Vancomycin(*) 750 MG in NS 0.9% 250 ml 250 ML IVPB SCH (06:13)
[2019-08-23 06:29] LABS: ABS Eosinophils 0.1 10^3/ul (0-0.6); ABS Lymphocytes 1.2 10^3/ul (1.0-4.8); ABS Monocytes 0.7 10^3/ul (0-0.8); Hematocrit 25 % (35-47); Hemoglobin 8.5 g/dL (12.0-16.0); Lymphocyte % 22.6 %; Mean Corpuscular HGB Conc 34 g/dL (31-36); Mean Corpuscular Hemoglobin 33 pg (27-31); Mean Corpuscular Volume 98 fL (80-97); Mean Platelet Volume 7.7 fL (7.4-10.4); Nucleated Red Blood Cells % 0.1; Platelet Count 334 10^3/uL (150-450); Red Blood Count 2.56 10^6 /uL (3.70-4.87); Red Cell Distribution Width 18 % (10-15); White Blood Count 5.2 10^3/uL (3.5-10.8)
[2019-08-23 06:35] LABS: INR 1.2 (0.82-1.09)
[2019-08-23 06:49] LABS: Anion Gap 7 mmol/L (2-11); BUN/Creatinine Ratio 16.2 (8-20); Blood Urea Nitrogen 11 mg/dL (6-24); C Reactive Protein 26.65 mg/L (<8.01); CO2 Carbon Dioxide 25 mmol/L (22-32); Calcium 8.1 mg/dL (8.6-10.3); Chloride 106 mmol/L (101-111); EGFR African American 98.8 (>60); EGFR Non-African American 81.7 (>60); Glucose 132 mg/dL (70-100); Potassium 3.7 mmol/L (3.5-5.0); Sodium 138 mmol/L (135-145)
[2019-08-23] MEDS ORDERED: NS 0.9% 1000 ml BAG 1,000 ML IV SCH (07:30)
[2019-08-23] MEDS: Insulin LISPRO 100 units/ml(*) SUBCUT SCH ×3 (08:04→17:30)
[2019-08-23] MEDS ORDERED: Enoxaparin 30 MG/0.3 ML SYR(*) SUBCUT SCH (09:00)
[2019-08-23] MEDS ORDERED: Insulin GLARGINE 100 un/ml (*) 10 ml VIAL SUBCUT SCH (09:00)
[2019-08-23] MEDS: Insulin GLARGINE 100 un/ml (*) 10 ml VIAL SUBCUT SCH (10:15)
[2019-08-23 12:17] LABS: % Iron Saturation 14 % (15-55); Iron 28 ug/dL (50-212); Total Iron Binding Capacity 195 mcg/dL (250-450); Transferrin 139 mg/dL (203-362)
[2019-08-23 12:26] LABS: Ferritin 189.4 ng/mL (11-307)
[2019-08-23 12:31] LABS: Folate 13.61 ng/mL (>3.99)
[2019-08-23] MEDS: metroNIDAZOLE IV 500 MG/100ML 500 MG/100 ML BAG IVPB SCH (14:07)
[2019-08-23] MEDS: Morphine 2 MG/ML SYRINGE IV PRN (16:47)
[2019-08-23] MEDS ORDERED: Lactated Ringers 1000 ml BAG 1,000 ML IV SCH (18:00)
[2019-08-23] MEDS ORDERED: ceFAZolin 1 GM ADVAN(*) 1 GM ADDV.VIAL IVPB ONE (19:57)
[2019-08-23] MEDS ORDERED: Lidocaine 2% PF 5 ML VIAL ONE (20:10)
[2019-08-23] MEDS ORDERED: Propofol 10 MG/ML 20 ML BTL ONE (20:11)
[2019-08-23] MEDS ORDERED: fentaNYL 100 mcg/2 ml 50 MCG/ML VIAL ONE ×2 (20:11→22:03)
[2019-08-23] MEDS ORDERED: EPHEDrine (Pressors) 50 MG/ML VIAL ONE (20:31)
[2019-08-23] MEDS ORDERED: Succinylcholine 200 mg VIAL 20 mg/ml 10 ml VIAL (200 mg) ONE (20:31)
[2019-08-23] MEDS ORDERED: Naloxone 0.4 mg VIAL 0.4 mg/ml 1 ml VIAL IV PRN (20:49)
[2019-08-23] MEDS ORDERED: DiMENhydriNATE IV 50 mg/ml 1 ml VIAL IV PUSH PRN (20:49)
[2019-08-23] MEDS: fentaNYL 100 mcg/2 ml 50 MCG/ML VIAL IV PRN ×4 (22:09→22:38)
[2019-08-24] MEDS: Vancomycin(*) 750 MG in NS 0.9% 250 ml 250 ML IVPB SCH ×3 (00:07→12:30)
[2019-08-24] MEDS: Senna TAB 8.6 mg TAB PO SCH ×2 (00:38→20:18)
[2019-08-24] MEDS: Insulin LISPRO 100 units/ml(*) SUBCUT SCH ×5 (00:39→22:32)
[2019-08-24] MEDS: Morphine 2 MG/ML SYRINGE IV PRN (00:43)
[2019-08-24] MEDS: Cefepime 2 GM in Dextrose(*) 2 GM/50 ML BAG IV SCH ×3 (01:58→15:10)
[2019-08-24] MEDS: metroNIDAZOLE IV 500 MG/100ML 500 MG/100 ML BAG IVPB SCH ×4 (04:20→20:01)
[2019-08-24 06:49] LABS: ABS Basophils 0.2 10^3/ul (0-0.2); ABS Lymphocytes 0.8 10^3/ul (1.0-4.8); ABS Monocytes 0.6 10^3/ul (0-0.8); Eosinophil % 0.6 %; Hematocrit 24 % (35-47); Hemoglobin 8.1 g/dL (12.0-16.0); Lymphocyte % 13.9 %; Mean Corpuscular HGB Conc 34 g/dL (31-36); Mean Corpuscular Hemoglobin 33 pg (27-31); Mean Corpuscular Volume 96 fL (80-97); Mean Platelet Volume 7.7 fL (7.4-10.4); Platelet Count 300 10^3/uL (150-450); Red Blood Count 2.46 10^6 /uL (3.70-4.87); Red Cell Distribution Width 17 % (10-15); White Blood Count 5.5 10^3/uL (3.5-10.8)
[2019-08-24 07:04] LABS: BUN/Creatinine Ratio 16.9 (8-20); C Reactive Protein 20.06 mg/L (<8.01); Calcium 7.9 mg/dL (8.6-10.3); EGFR African American 104.1 (>60); Potassium 3.1 mmol/L (3.5-5.0)
[2019-08-24] MEDS ORDERED: Potassium Chloride LIQUID 20 MEQ/15 ML LIQUID PO ONE (07:11)
[2019-08-24] MEDS: Insulin GLARGINE 100 un/ml (*) 10 ml VIAL SUBCUT SCH (07:55)
[2019-08-24] MEDS: Enoxaparin 30 MG/0.3 ML SYR(*) SUBCUT SCH (14:19)
[2019-08-25] MEDS: Vancomycin(*) 750 MG in NS 0.9% 250 ml 250 ML IVPB SCH ×2 (00:01→12:52)
[2019-08-25] MEDS: Cefepime 2 GM in Dextrose(*) 2 GM/50 ML BAG IV SCH ×2 (02:15→15:15)
[2019-08-25] MEDS: metroNIDAZOLE IV 500 MG/100ML 500 MG/100 ML BAG IVPB SCH ×3 (04:48→19:30)
[2019-08-25 06:13] LABS: ABS Basophils 0.1 10^3/ul (0-0.2); ABS Eosinophils 0.1 10^3/ul (0-0.6); ABS Monocytes 0.6 10^3/ul (0-0.8); Eosinophil % 2.4 %; Hematocrit 24 % (35-47); Hemoglobin 8.3 g/dL (12.0-16.0); Lymphocyte % 20.5 %; Mean Corpuscular HGB Conc 34 g/dL (31-36); Mean Corpuscular Hemoglobin 33 pg (27-31); Mean Corpuscular Volume 98 fL (80-97); Mean Platelet Volume 7.9 fL (7.4-10.4); Platelet Count 307 10^3/uL (150-450); Red Blood Count 2.48 10^6 /uL (3.70-4.87); Red Cell Distribution Width 18 % (10-15); White Blood Count 5.1 10^3/uL (3.5-10.8)
[2019-08-25 06:31] LABS: BUN/Creatinine Ratio 12.7 (8-20); Calcium 7.9 mg/dL (8.6-10.3); EGFR Non-African American 77.7 (>60); Magnesium 1.6 mg/dL (1.9-2.7); Potassium 4.2 mmol/L (3.5-5.0)
[2019-08-25] MEDS: Insulin LISPRO 100 units/ml(*) SUBCUT SCH ×4 (07:27→21:41)
[2019-08-25] MEDS ORDERED: Magnesium Sulfate 2 gm BAG 2 GM/50 ML BAG IVPB ONE (07:47)
[2019-08-25] MEDS: Insulin GLARGINE 100 un/ml (*) 10 ml VIAL SUBCUT SCH (09:43)
[2019-08-25 09:55] LABS: C Reactive Protein 46.29 mg/L (<8.01)
[2019-08-25] MEDS ORDERED: Vancomycin Trough Check NOTE FOLLOW UP ONE (11:30)
[2019-08-25] MEDS: Enoxaparin 30 MG/0.3 ML SYR(*) SUBCUT SCH (12:53)
[2019-08-25] MEDS: Senna TAB 8.6 mg TAB PO SCH (21:29)
[2019-08-26] MEDS: Cefepime 2 GM in Dextrose(*) 2 GM/50 ML BAG IV SCH (02:43)
[2019-08-26] MEDS: metroNIDAZOLE IV 500 MG/100ML 500 MG/100 ML BAG IVPB SCH ×2 (04:08→12:36)
[2019-08-26 06:22] LABS: ABS Basophils 0.1 10^3/ul (0-0.2); ABS Eosinophils 0.2 10^3/ul (0-0.6); ABS Lymphocytes 1.5 10^3/ul (1.0-4.8); ABS Monocytes 0.5 10^3/ul (0-0.8); Hematocrit 23 % (35-47); Hemoglobin 7.8 g/dL (12.0-16.0); Lymphocyte % 26.8 %; Mean Corpuscular HGB Conc 34 g/dL (31-36); Mean Corpuscular Hemoglobin 33 pg (27-31); Mean Corpuscular Volume 96 fL (80-97); Mean Platelet Volume 7.5 fL (7.4-10.4); Nucleated Red Blood Cells % 0.1; Platelet Count 312 10^3/uL (150-450); Red Cell Distribution Width 18 % (10-15); White Blood Count 5.5 10^3/uL (3.5-10.8)
[2019-08-26 06:37] LABS: BUN/Creatinine Ratio 18.8 (8-20); C Reactive Protein 23.35 mg/L (<8.01); EGFR African American 97.2 (>60); EGFR Non-African American 80.3 (>60); Magnesium 1.7 mg/dL (1.9-2.7); Potassium 3.5 mmol/L (3.5-5.0)
[2019-08-26] MEDS: Insulin GLARGINE 100 un/ml (*) 10 ml VIAL SUBCUT SCH (10:06)
[2019-08-26] MEDS: Insulin LISPRO 100 units/ml(*) SUBCUT SCH ×3 (10:11→20:59)
[2019-08-26] MEDS: cefTRIAXone ADVAN VIAL 1 GM in NS 0.9% 50 ML 50 ML IVPB SCH (14:01)
[2019-08-26] MEDS ORDERED: Ketamine HCL 50 mg/ml 10 ml VIAL (500 MG) ONE (16:00)
[2019-08-26] MEDS ORDERED: fentaNYL 100 mcg/2 ml 50 MCG/ML VIAL ONE (16:00)
[2019-08-26] MEDS ORDERED: Midazolam 2 mg/2 ml VIAL 1 mg/ml 2 ml VIAL (2 mg) ONE (16:01)
[2019-08-26 17:01] LABS: Hematocrit 29 % (35-47); Hemoglobin 9.8 g/dL (12.0-16.0)
[2019-08-26] MEDS ORDERED: ceFAZolin 2 GM PREMIX in ORs 2 GM/50 ML BAG IVPB ONE (17:29)
[2019-08-26] MEDS ORDERED: ceFAZolin 2 GM PREMIX in ORs 2 GM/50 ML BAG ONE (17:30)
[2019-08-26] MEDS ORDERED: fentaNYL 100 mcg/2 ml 50 MCG/ML VIAL IV PRN (18:41)
[2019-08-26] MEDS ORDERED: Naloxone 0.4 mg VIAL 0.4 mg/ml 1 ml VIAL IV PRN (18:41)
[2019-08-26] MEDS: Morphine 2 MG/ML SYRINGE IV PRN (20:56)
[2019-08-26] MEDS: Senna TAB 8.6 mg TAB PO SCH (20:59)
[2019-08-26] MEDS ORDERED: Haloperidol 5 mg/ml SDV IV/IM 5 MG/ML AMP IV SLOW PU ONE (23:55)
[2019-08-27 05:51] LABS: Hematocrit 31 % (35-47); Hemoglobin 10.4 g/dL (12.0-16.0); Mean Platelet Volume 7.5 fL (7.4-10.4); Platelet Count 357 10^3/uL (150-450)
[2019-08-27 06:05] LABS: BUN/Creatinine Ratio 16.9 (8-20); C Reactive Protein 14.01 mg/L (<8.01); Calcium 7.9 mg/dL (8.6-10.3); EGFR African American 104.1 (>60); Potassium 3.5 mmol/L (3.5-5.0)
[2019-08-27 08:21] LABS: Magnesium 1.5 mg/dL (1.9-2.7)
[2019-08-27] MEDS: Insulin GLARGINE 100 un/ml (*) 10 ml VIAL SUBCUT SCH (08:55)
[2019-08-27] MEDS: Insulin LISPRO 100 units/ml(*) SUBCUT SCH ×4 (08:57→22:34)
[2019-08-27] MEDS ORDERED: metroNIDAZOLE IV 500 MG/100ML 500 MG/100 ML BAG IVPB SCH (09:00)
[2019-08-27] MEDS: Metformin ER 750 mg TAB (NF) PO SCH ×2 (09:49→22:28)
[2019-08-27] MEDS: metroNIDAZOLE IV 500 MG/100ML 500 MG/100 ML BAG IVPB SCH ×2 (09:52→17:33)
[2019-08-27] MEDS: Enoxaparin 30 MG/0.3 ML SYR(*) SUBCUT SCH (13:11)
[2019-08-27] MEDS: cefTRIAXone ADVAN VIAL 1 GM in NS 0.9% 50 ML 50 ML IVPB SCH (14:48)
[2019-08-27] MEDS: Senna TAB 8.6 mg TAB PO SCH (22:26)
[2019-08-28] MEDS: metroNIDAZOLE IV 500 MG/100ML 500 MG/100 ML BAG IVPB SCH ×3 (00:50→17:27)
[2019-08-28 06:54] LABS: ABS Eosinophils 0.1 10^3/ul (0-0.6); ABS Lymphocytes 1.6 10^3/ul (1.0-4.8); ABS Monocytes 0.6 10^3/ul (0-0.8); Eosinophil % 1.2 %; Hematocrit 30 % (35-47); Hemoglobin 10.2 g/dL (12.0-16.0); Lymphocyte % 24.8 %; Mean Corpuscular HGB Conc 34 g/dL (31-36); Mean Corpuscular Hemoglobin 32 pg (27-31); Mean Corpuscular Volume 94 fL (80-97); Mean Platelet Volume 7.6 fL (7.4-10.4); Nucleated Red Blood Cells % 0.1; Platelet Count 375 10^3/uL (150-450); Red Blood Count 3.19 10^6 /uL (3.70-4.87); Red Cell Distribution Width 18 % (10-15); White Blood Count 6.4 10^3/uL (3.5-10.8)
[2019-08-28 08:48] LABS: BUN/Creatinine Ratio 14.8 (8-20); C Reactive Protein 9.66 mg/L (<8.01); Calcium 8.4 mg/dL (8.6-10.3); EGFR African American 73.4 (>60); EGFR Non-African American 60.6 (>60); Potassium 3.2 mmol/L (3.5-5.0)
[2019-08-28] MEDS: Insulin LISPRO 100 units/ml(*) SUBCUT SCH ×4 (08:58→23:14)
[2019-08-28] MEDS: Insulin GLARGINE 100 un/ml (*) 10 ml VIAL SUBCUT SCH (08:59)
[2019-08-28] MEDS: Metformin ER 750 mg TAB (NF) PO SCH ×2 (09:18→23:16)
[2019-08-28] MEDS: Enoxaparin 30 MG/0.3 ML SYR(*) SUBCUT SCH (12:31)
[2019-08-28] MEDS: cefTRIAXone ADVAN VIAL 1 GM in NS 0.9% 50 ML 50 ML IVPB SCH (14:09)
[2019-08-28] MEDS: Senna TAB 8.6 mg TAB PO SCH (23:16)
[2019-08-29] MEDS: metroNIDAZOLE IV 500 MG/100ML 500 MG/100 ML BAG IVPB SCH ×3 (00:30→17:00)
[2019-08-29 05:14] LABS: BUN/Creatinine Ratio 17.8 (8-20); Calcium 8.2 mg/dL (8.6-10.3); EGFR Non-African American 75.2 (>60)
[2019-08-29 05:21] LABS: Potassium 3.5 mmol/L (3.5-5.0)
[2019-08-29] MEDS ORDERED: Insulin GLARGINE 100 un/ml (*) 10 ml VIAL SUBCUT SCH (09:00)
[2019-08-29] MEDS: Insulin LISPRO 100 units/ml(*) SUBCUT SCH ×4 (09:09→20:23)
[2019-08-29] MEDS: Enoxaparin 30 MG/0.3 ML SYR(*) SUBCUT SCH (12:06)
[2019-08-29] MEDS: cefTRIAXone ADVAN VIAL 1 GM in NS 0.9% 50 ML 50 ML IVPB SCH (13:52)
[2019-08-29] MEDS: Senna TAB 8.6 mg TAB PO SCH (20:18)
[2019-08-30] MEDS: metroNIDAZOLE IV 500 MG/100ML 500 MG/100 ML BAG IVPB SCH (00:47)
[2019-08-30 05:12] LABS: ABS Basophils 0.1 10^3/ul (0-0.2); ABS Eosinophils 0.1 10^3/ul (0-0.6); ABS Lymphocytes 2.1 10^3/ul (1.0-4.8); ABS Monocytes 0.5 10^3/ul (0-0.8); Eosinophil % 1.6 %; Hematocrit 27 % (35-47); Lymphocyte % 36.8 %; Mean Corpuscular HGB Conc 33 g/dL (31-36); Mean Corpuscular Hemoglobin 31 pg (27-31); Mean Corpuscular Volume 94 fL (80-97); Mean Platelet Volume 7.4 fL (7.4-10.4); Nucleated Red Blood Cells % 0.2; Platelet Count 324 10^3/uL (150-450); Red Blood Count 2.91 10^6 /uL (3.70-4.87); Red Cell Distribution Width 18 % (10-15); White Blood Count 5.7 10^3/uL (3.5-10.8)
[2019-08-30 05:28] LABS: BUN/Creatinine Ratio 18.5 (8-20); C Reactive Protein 4.55 mg/L (<8.01); Calcium 7.9 mg/dL (8.6-10.3); EGFR African American 104.1 (>60); Potassium 3.3 mmol/L (3.5-5.0)
[2019-08-30] MEDS ORDERED: Potassium Chlor 20 meq TAB.ER PO ONE (07:21)
[2019-08-30 08:00] LABS: Magnesium 1.4 mg/dL (1.9-2.7)
[2019-08-30] MEDS ORDERED: Insulin GLARGINE 100 un/ml (*) 10 ml VIAL SUBCUT SCH (09:00)
[2019-08-30] MEDS: Insulin LISPRO 100 units/ml(*) SUBCUT SCH ×2 (09:31→12:16)
[2019-08-30] MEDS ORDERED: Magnesium Sulfate 2 gm BAG 2 GM/50 ML BAG IVPB ONE (09:59)
[2019-08-30 11:37] VITALS: BP 152/43
[2019-08-30] MEDS: Enoxaparin 30 MG/0.3 ML SYR(*) SUBCUT SCH (11:52)
[2019-08-30] MEDS ORDERED: cefTRIAXone ADVAN VIAL 1 GM in NS 0.9% 50 ML 50 ML IVPB SCH (12:00)
== END 2019-08-30 13:49 | DRG 857 ==
LOC: SSU
PROVIDERS: ADMIT Internal Medicine; ATTEND Internal Medicine

== ENCOUNTER 2019-10-04 08:44 | Inpatient (IN) ==
[~2019-10-04 08:44] MED LIST: Buffered Lidocaine 1% SYRIN 1 ml INTRADERM ONE; Lactated Ringers 1000 ml BAG 1,000 ML IV SCH
[2019-10-04] MEDS ORDERED: ceFAZolin 2 GM PREMIX 2 GM/50 ML BAG ONE (10:04)
[2019-10-04] MEDS ORDERED: fentaNYL 100 mcg/2 ml 50 MCG/ML VIAL ONE ×2 (10:20→16:16)
[2019-10-04] MEDS ORDERED: Ondansetron 4 mg VIAL 2 MG/ML 2 ml VIAL ONE (10:21)
[2019-10-04] MEDS ORDERED: Dexamethasone IV 4 MG/ML VIAL 1 ml VIAL ONE ×2 (10:21)
[2019-10-04] MEDS ORDERED: Propofol 10 MG/ML 20 ML BTL ONE (10:21)
[2019-10-04] MEDS ORDERED: Rocuronium 50 mg VIAL 10 mg/ml 5 ml VIAL (50 mg) ONE ×2 (10:21→12:40)
[2019-10-04 12:11] LABS: Hematocrit 33 % (35-47); Hemoglobin 11.1 g/dL (12.0-16.0); Mean Corpuscular HGB Conc 34 g/dL (31-36); Mean Corpuscular Hemoglobin 31 pg (27-31); Mean Corpuscular Volume 93 fL (80-97); Mean Platelet Volume 8.2 fL (7.4-10.4); Platelet Count 313 10^3/uL (150-450); Red Blood Count 3.56 10^6 /uL (3.70-4.87); Red Cell Distribution Width 18 % (10-15); White Blood Count 8.2 10^3/uL (3.5-10.8)
[2019-10-04 12:29] LABS: BUN/Creatinine Ratio 25.6 (8-20); Calcium 10.6 mg/dL (8.6-10.3); EGFR African American 84.3 (>60); EGFR Non-African American 69.7 (>60); Potassium 4.5 mmol/L (3.5-5.0)
[2019-10-04] MEDS ORDERED: Vancomycin 1,000 MG VIAL ONE (14:55)
[2019-10-04] MEDS ORDERED: diPHENhydraMINE IV 50 MG/ML 1 ml VIAL (BENADRYL) IV PRN (15:45)
[2019-10-04] MEDS ORDERED: diPHENhydraMINE 25 mg TAB PO PRN (15:45)
[2019-10-04] MEDS ORDERED: Ondansetron 4 mg VIAL 2 MG/ML 2 ml VIAL IV PRN ×2 (15:45→16:18)
[2019-10-04] MEDS ORDERED: Morphine 2 MG/ML SYRINGE IV PRN (15:45)
[2019-10-04] MEDS ORDERED: Magnesium Hydroxide LIQ 30 ML UDC PO PRN (15:45)
[2019-10-04] MEDS ORDERED: Lactulose 30 ml UDC PO PRN (15:45)
[2019-10-04] MEDS ORDERED: Ondansetron ODT 4 mg TAB 4 MG TAB PO PRN (15:45)
[2019-10-04] MEDS ORDERED: ceFAZolin 1 GM ADVAN 1 GM in NS 0.9% 50 ML 50 ML IVPB SCH (16:00)
[2019-10-04] MEDS ORDERED: DiMENhydriNATE IV 50 mg/ml 1 ml VIAL IV PUSH PRN (16:18)
[2019-10-04] MEDS ORDERED: Naloxone 0.4 mg VIAL 0.4 mg/ml 1 ml VIAL IV PRN (16:18)
[2019-10-04] MEDS: fentaNYL 100 mcg/2 ml 50 MCG/ML VIAL IV PRN ×3 (16:22→16:50)
[2019-10-04] MEDS ORDERED: Dextrose 50% Syringe 50 ml 25 GM/50 ML SYRINGE IV PUSH PRN (16:30)
[2019-10-04] MEDS ORDERED: CEFTRIAXONE 1 GM IV SCH (17:00)
[2019-10-04] MEDS: Magnesium Hydroxide LIQ 30 ML UDC PO SCH (21:42)
[2019-10-04] MEDS: cefTRIAXone 1 gm/50 mL NS BAG 1 GM/50 ML BAG IVPB SCH (22:51)
[2019-10-04] MEDS ORDERED: NS 0.9% 500 ml BAG 500 ML IV ONE (23:27)
[2019-10-05] MEDS: Senna/Docusate 8.6/50 mg (NF) TAB PO SCH ×2 (00:52→23:54)
[2019-10-05] MEDS ORDERED: NS 0.9% 1000 ml BAG 1,000 ML IV ONE ×2 (02:52→03:04)
[2019-10-05 06:41] LABS: ABS Lymphocytes 1.3 10^3/ul (1.0-4.8); ABS Monocytes 0.8 10^3/ul (0-0.8); Hematocrit 23 % (35-47); Hemoglobin 7.7 g/dL (12.0-16.0); Lymphocyte % 10.6 %; Mean Corpuscular HGB Conc 34 g/dL (31-36); Mean Corpuscular Hemoglobin 31 pg (27-31); Mean Corpuscular Volume 93 fL (80-97); Nucleated Red Blood Cells % 0.1; Platelet Count 268 10^3/uL (150-450); Red Blood Count 2.48 10^6 /uL (3.70-4.87); Red Cell Distribution Width 19 % (10-15); White Blood Count 12.2 10^3/uL (3.5-10.8)
[2019-10-05 06:45] LABS: BUN/Creatinine Ratio 30.3 (8-20); Calcium 9.2 mg/dL (8.6-10.3); EGFR African American 64.1 (>60); EGFR Non-African American 52.9 (>60)
[2019-10-05 06:46] LABS: Potassium 5.3 mmol/L (3.5-5.0)
[2019-10-05] MEDS: Lidocaine PATCH 5% PATCH TRANSDERM SCH (07:47)
[2019-10-05] MEDS ORDERED: Potassium Chlor 20 meq TAB.ER PO SCH (09:00)
[2019-10-05] MEDS: Psyllium PAK PO SCH (10:36)
[2019-10-05] MEDS: Magnesium Hydroxide LIQ 30 ML UDC PO SCH ×2 (10:37→23:51)
[2019-10-05] MEDS: Vitamin THERAPEUTIC TAB PO SCH (10:39)
[2019-10-05] MEDS: Insulin GLARGINE 100 un/ml 10 ml VIAL SUBCUT SCH (10:41)
[2019-10-05] MEDS ORDERED: CEFTRIAXONE 1 GM IV SCH (12:00)
[2019-10-05] MEDS: Enoxaparin 40 MG/0.4 ML SYR SUBCUT SCH (13:51)
[2019-10-05] MEDS: NS 0.9% 1000 ml BAG 1,000 ML IV SCH (16:22)
[2019-10-05] MEDS: cefTRIAXone 1 gm/50 mL NS BAG 1 GM/50 ML BAG IVPB SCH (22:12)
[2019-10-06] MEDS: NS 0.9% 1000 ml BAG 1,000 ML IV SCH (05:53)
[2019-10-06 06:41] LABS: ABS Eosinophils 0.1 10^3/ul (0-0.6); ABS Lymphocytes 1.5 10^3/ul (1.0-4.8); ABS Monocytes 0.8 10^3/ul (0-0.8); Eosinophil % 0.7 %; Hematocrit 24 % (35-47); Hemoglobin 8.3 g/dL (12.0-16.0); Lymphocyte % 18.5 %; Mean Corpuscular HGB Conc 35 g/dL (31-36); Mean Corpuscular Hemoglobin 32 pg (27-31); Mean Corpuscular Volume 92 fL (80-97); Nucleated Red Blood Cells % 0.1; Platelet Count 202 10^3/uL (150-450); Red Blood Count 2.61 10^6 /uL (3.70-4.87); Red Cell Distribution Width 19 % (10-15); White Blood Count 8.3 10^3/uL (3.5-10.8)
[2019-10-06 06:52] LABS: BUN/Creatinine Ratio 30.2 (8-20); Calcium 8.5 mg/dL (8.6-10.3); EGFR African American 66.4 (>60); EGFR Non-African American 54.8 (>60); Magnesium 1.6 mg/dL (1.9-2.7); Potassium 4.7 mmol/L (3.5-5.0)
[2019-10-06] MEDS ORDERED: Magnesium Sulfate 2 gm BAG 2 GM/50 ML BAG IVPB ONE (07:26)
[2019-10-06] MEDS: Vitamin THERAPEUTIC TAB PO SCH (09:30)
[2019-10-06] MEDS: Magnesium Hydroxide LIQ 30 ML UDC PO SCH ×3 (09:30→22:09)
[2019-10-06] MEDS: Psyllium PAK PO SCH (09:30)
[2019-10-06 10:17] LABS: Urine Appearance Clear; Urine Bilirubin Negative (Negative); Urine Blood Negative (Negative); Urine Color Yellow; Urine Glucose Negative (Negative); Urine Ketones Trace (Negative); Urine Nitrite Negative (Negative); Urine Protein Negative (Negative); Urine Specific Gravity 1.019 (1.010-1.030); Urine Urobilinogen Negative (Negative)
[2019-10-06 10:25] LABS: Urine Bacteria Absent (Absent); Urine Red Blood Cell Absent (Absent); Urine Squamous Epithelial Cell Present (Absent); Urine White Blood Cell 2+(11-20/hpf) (Absent)
[2019-10-06] MEDS: Insulin GLARGINE 100 un/ml 10 ml VIAL SUBCUT SCH (10:59)
[2019-10-06] MEDS: Enoxaparin 40 MG/0.4 ML SYR SUBCUT SCH (13:21)
[2019-10-06] MEDS: Lidocaine PATCH 5% PATCH TRANSDERM SCH (14:23)
[2019-10-06] MEDS: cefTRIAXone 1 gm/50 mL NS BAG 1 GM/50 ML BAG IVPB SCH (22:09)
[2019-10-06] MEDS: Senna TAB 8.6 mg TAB PO SCH (22:09)
[2019-10-07] MEDS: NS 0.9% 1000 ml BAG 1,000 ML IV SCH (00:47)
[2019-10-07 05:39] LABS: ABS Eosinophils 0.1 10^3/ul (0-0.6); ABS Lymphocytes 1.4 10^3/ul (1.0-4.8); ABS Monocytes 0.7 10^3/ul (0-0.8); Hematocrit 24 % (35-47); Hemoglobin 8.3 g/dL (12.0-16.0); Lymphocyte % 17.4 %; Mean Corpuscular HGB Conc 34 g/dL (31-36); Mean Corpuscular Hemoglobin 32 pg (27-31); Mean Corpuscular Volume 92 fL (80-97); Mean Platelet Volume 7.5 fL (7.4-10.4); Platelet Count 233 10^3/uL (150-450); Red Blood Count 2.63 10^6 /uL (3.70-4.87); Red Cell Distribution Width 18 % (10-15); White Blood Count 7.8 10^3/uL (3.5-10.8)
[2019-10-07 05:54] LABS: Calcium 8.5 mg/dL (8.6-10.3); EGFR African American 95.6 (>60); Magnesium 1.6 mg/dL (1.9-2.7); Potassium 3.8 mmol/L (3.5-5.0)
[2019-10-07] MEDS ORDERED: Magnesium Sulfate 2 gm BAG 2 GM/50 ML BAG IVPB ONE (07:38)
[2019-10-07 08:53] LABS: C Reactive Protein 37.23 mg/L (<8.01)
[2019-10-07] MEDS: Magnesium Hydroxide LIQ 30 ML UDC PO SCH ×2 (09:41→20:37)
[2019-10-07] MEDS: Insulin GLARGINE 100 un/ml 10 ml VIAL SUBCUT SCH (09:41)
[2019-10-07] MEDS: Lidocaine PATCH 5% PATCH TRANSDERM SCH (09:50)
[2019-10-07] MEDS: Psyllium PAK PO SCH (09:52)
[2019-10-07] MEDS: Vitamin THERAPEUTIC TAB PO SCH (09:53)
[2019-10-07] MEDS: Enoxaparin 40 MG/0.4 ML SYR SUBCUT SCH (13:29)
[2019-10-07] MEDS ORDERED: Vancomycin per Pharmacy 1 EA NOTE FOLLOW UP PRN (14:39)
[2019-10-07] MEDS ORDERED: Vancomycin 1,500 MG in NS 0.9% 250 ml 250 ML IVPB ONE (15:00)
[2019-10-07] MEDS: Senna TAB 8.6 mg TAB PO SCH (20:33)
[2019-10-07] MEDS: cefTRIAXone 1 gm/50 mL NS BAG 1 GM/50 ML BAG IVPB SCH (22:08)
[2019-10-08] MEDS: Vancomycin 1,000 MG in NS 0.9% 250 ml 250 ML IV SCH ×2 (02:28→14:17)
[2019-10-08 06:26] LABS: ABS Eosinophils 0.1 10^3/ul (0-0.6); ABS Lymphocytes 1.3 10^3/ul (1.0-4.8); ABS Monocytes 0.5 10^3/ul (0-0.8); Eosinophil % 1.6 %; Hematocrit 23 % (35-47); Hemoglobin 7.8 g/dL (12.0-16.0); Lymphocyte % 21.2 %; Mean Corpuscular HGB Conc 34 g/dL (31-36); Mean Corpuscular Hemoglobin 31 pg (27-31); Mean Corpuscular Volume 92 fL (80-97); Mean Platelet Volume 7.7 fL (7.4-10.4); Nucleated Red Blood Cells % 0.1; Platelet Count 224 10^3/uL (150-450); Red Blood Count 2.51 10^6 /uL (3.70-4.87); Red Cell Distribution Width 18 % (10-15); White Blood Count 6.3 10^3/uL (3.5-10.8)
[2019-10-08 06:44] LABS: BUN/Creatinine Ratio 21.9 (8-20); Calcium 7.6 mg/dL (8.6-10.3); EGFR Non-African American 75.2 (>60); Magnesium 1.7 mg/dL (1.9-2.7); Potassium 3.6 mmol/L (3.5-5.0)
[2019-10-08] MEDS ORDERED: Magnesium Sulfate 2 gm BAG 2 GM/50 ML BAG IVPB ONE (08:00)
[2019-10-08] MEDS: Magnesium Hydroxide LIQ 30 ML UDC PO SCH ×2 (08:50→21:04)
[2019-10-08] MEDS: Psyllium PAK PO SCH (08:50)
[2019-10-08] MEDS: Insulin GLARGINE 100 un/ml 10 ml VIAL SUBCUT SCH (08:50)
[2019-10-08] MEDS: Vitamin THERAPEUTIC TAB PO SCH (08:50)
[2019-10-08] MEDS: Lidocaine PATCH 5% PATCH TRANSDERM SCH (08:58)
[2019-10-08] MEDS: Enoxaparin 40 MG/0.4 ML SYR SUBCUT SCH (12:03)
[2019-10-08] MEDS: Senna TAB 8.6 mg TAB PO SCH (21:04)
[2019-10-08] MEDS: cefTRIAXone 1 gm/50 mL NS BAG 1 GM/50 ML BAG IVPB SCH (22:54)
[2019-10-09] MEDS: Vancomycin 1,000 MG in NS 0.9% 250 ml 250 ML IV SCH (02:09)
[2019-10-09 06:07] LABS: Hematocrit 25 % (35-47); Hemoglobin 8.7 g/dL (12.0-16.0); Mean Platelet Volume 7.6 fL (7.4-10.4); Platelet Count 260 10^3/uL (150-450)
[2019-10-09 06:30] LABS: Calcium 7.6 mg/dL (8.6-10.3); Magnesium 1.6 mg/dL (1.9-2.7); Potassium 3.6 mmol/L (3.5-5.0)
[2019-10-09 06:35] LABS: BUN/Creatinine Ratio 22.6 (8-20); EGFR African American 109.9 (>60); EGFR Non-African American 90.8 (>60)
[2019-10-09] MEDS: Psyllium PAK PO SCH (08:42)
[2019-10-09] MEDS: Vitamin THERAPEUTIC TAB PO SCH (08:42)
[2019-10-09] MEDS: Lidocaine PATCH 5% PATCH TRANSDERM SCH (08:43)
[2019-10-09] MEDS: Magnesium Hydroxide LIQ 30 ML UDC PO SCH (09:24)
[2019-10-09] MEDS: Insulin GLARGINE 100 un/ml 10 ml VIAL SUBCUT SCH (09:24)
[2019-10-09 10:57] VITALS: BP 169/51
[2019-10-09] MEDS ORDERED: Vancomycin Trough Check NOTE FOLLOW UP ONE (14:00)
== END 2019-10-09 12:05 | DRG 481 ==
LOC: OR 08:44 → SSU 08:44
PROVIDERS: ADMIT Orthopaedic Surgery; ATTEND Orthopaedic Surgery